=== PATIENT | male | born 1995 | race Hispanic/Latino ===

== ENCOUNTER 2023-11-03 10:08 | Emergency (ER) | payer OTHER ==
[~2023-11-03] VITALS: Ht 167.6 cm; Wt 74.8 kg
[2023-11-03] MEDS: 0.9%NACL 1000ML 1,000 ML IV ONE (10:26)
[2023-11-03 10:46] LABS: BASOPHILS # (AUTO) 0.01 K/uL (0.00-0.20); BASOPHILS % (AUTO) 0.1 % (0.0-5.0); EOSINOPHILS # (AUTO) 0.06 K/uL (0.00-0.70); EOSINOPHILS % (AUTO) 0.5 % (0.0-8.0); HEMATOCRIT 47.7 % (42-54); IMMATURE GRANULOCYTE ABSOLUTE 0.04 K/uL (0-1); LYMPHOCYTES # (AUTO) 1.7 K/uL (1.0-4.8); LYMPHOCYTES % (AUTO) 14.8 % (21.0-51.0); MEAN CORPUSCULAR HEMOGLOBIN 31.4 pg (27.0-33.0); MEAN CORPUSCULAR HGB CONC 34.8 g/dL (32.0-36.0); MEAN CORPUSCULAR VOLUME 90.3 fL (79-99); MONOCYTES # (AUTO) 0.7 K/uL (0.1-1.0); MONOCYTES % (AUTO) 5.7 % (3.0-13.0); NEUTROPHILS # (AUTO) 9.2 K/uL (1.8-7.7); NEUTROPHILS % (AUTO) 78.6 % (40.0-77.0); PLATELET COUNT (AUTO) 247 K/uL (130-400); RED BLOOD CELL COUNT(AUTO) 5.28 MIL/uL (4.50-6.20); RED CELL DISTRIBUTION WIDTH 12.1 % (11.0-15.5); WHITE BLOOD COUNT (AUTO) 11.7 K/uL (4.8-10.8)
[2023-11-03 10:58] LABS: APPEARANCE,URINE CLEAR (CLEAR); BILIRUBIN,URINE NEGATIVE (NEGATIVE); COLOR,URINE LIGHT-YELLOW (YELLOW); GLUCOSE, URINE (UA) 50 mg/dL (NEGATIVE); KETONES,URINE NEGATIVE (NEGATIVE); LEUKOCYTE ESTERASE ,URINE NEGATIVE Leu/uL (NEGATIVE); NITRATE,URINE NEGATIVE (NEGATIVE); OCCULT BLOOD,URINE NEGATIVE (NEGATIVE); PH,URINE 6.5 (5.0-8.0); PROTEIN,URINE NEGATIVE (NEGATIVE)
[2023-11-03 11:03] LABS: ADD UA MICROSCOPIC YES
[2023-11-03 11:17] LABS: ALBUMIN 4.2 g/dL (3.5-5.0); BILIRUBIN,TOTAL 0.7 mg/dL (0.2-1.0); CREATININE 0.9 mg/dL (0.5-1.3); TOTAL PROTEIN, SERUM 7.8 g/dL (6.0-8.3)
[2023-11-03 12:29] LABS: ALCOHOL, BLOOD < 3 mg/dL (0-10)
[2023-11-03 12:33] LABS: AMPHET/METH SCREEN,URINE NEGATIVE (NEGATIVE); BARBITURATE SCREEN, URINE NEGATIVE (NEGATIVE); BENZODIAZEPINES SCREEN,URINE NEGATIVE (NEGATIVE); CANNABINOID SCREEN,URINE POSITIVE (NEGATIVE); COCAINE SCREEN,URINE NEGATIVE (NEGATIVE); OPIATE SCREEN,URINE NEGATIVE (NEGATIVE); PHENCYCLIDINE SCREEN,URINE NEGATIVE (NEGATIVE)
[2023-11-03 12:55] LABS: ACETAMINOPHEN < 2 mcg/mL (10-29); SALICYLATE < 2.8 mg/dL (2.8-20.0)
[2023-11-03] MEDS: 0.9%NACL 1000ML 1,914 ML IV ONE (14:02)
[2023-11-03 15:07] VITALS: BP 110/78; PULSE 87; RESP 18; O2SAT 98
== END 2023-11-03 15:19 | disposition home or self-care (01) ==
LOC: EDH 10:08
DX: R74.8 Abnormal levels of other serum enzymes (principal); F12.90 Cannabis use, unspecified, uncomplicated; R41.82 Altered mental status, unspecified
CPT/HCPCS: 99284; 96360; 70450; 96361; 82550 ×2; 84484; 80053; 80305; 82140; 85025; 81001; 36415; 93005; G0481; J7030 ×2